=== PATIENT | male | born 1975 | race Caucasian/White ===

== ENCOUNTER 2019-01-07 13:23 | Emergency (ER) | payer OTHER ==
[~2019-01-07] VITALS: Ht 170.2 cm; Wt 75.0 kg
[~2019-01-07 13:23] MED LIST: IBUP800T48 PO; TRAM50TA2 PO
[2019-01-07 13:32] VITALS: Ht 170.2 cm; Wt 75.0 kg
[2019-01-07] MEDS ORDERED: HYDROCODONE/APAP (5/325) TAB PO ONE (15:00)
[2019-01-07] MEDS ORDERED: LIDOCAINE 1% (MPF) 5 ML VIAL INFIL ONE (15:00)
--- NOTE | 2019-01-07 15:47 | ERD ---
ER Documentation Chief Complaint Chief Complaint laceration/wound to the left huerta; occurred today at 6am HPI 43-year-old male is here with laceration to the left huerta that occurred today w ith a piece of metal accidentally cut him. He is able to ambulate. His tetanus vaccination is up-to-date. Denies possibility retained foreign body. ROS All systems reviewed and are negative except as per history of present illness. Allergies Allergies: Coded Allergies: No Known Allergy (Unverified , 01/07/19) PMhx/Soc Medical and Surgical Hx: pt denies Medical Hx, pt denies Surgical Hx Hx Alcohol Use: Yes (SOMETIMES) Hx Substance Use: No Hx Tobacco Use: No Smoking Status: Never smoker FmHx Family History: No diabetes Physical Exam Vitals Vital Signs Date Temp Pulse Resp B/P (MAP) Pulse Ox O2 O2 Flow FiO2 Time Delivery Rate 01/07/19 98.0 85 18 137/37 98 13:32 (70) Physical Exam INITIAL VITAL SIGNS: Reviewed by me GENERAL: Awake, alert and oriented x 4, well appearing, nontoxic, speaking in full sentences. No acute distress HEAD: Atraumatic NECK: Supple. No masses. Full range of motion. No meningismus. No midline tenderness. EYES: EOMI. PERRL. RESPIRATORY: Clear to auscultation bilaterally. Symmetric chest wall rise. No wheezing or rales. No accessory muscle use. CV: Regular rate and rhythm. No murmurs, rubs, or gallops. EXTREMITIES: No clubbing or cyanosis. No edema. Moving all extremities normally. SKIN: Left huerta laceration 2 inches in Results 24 hrs Current Medications Medications Dose Sig/Paulo Start Time Status Last (Trade) Ordered Route PRN Stop Time Admin Dose Reason Admin 1 tab ONCE ONCE 01/07/19 DC 01/07/19 Acetaminophen PO 15:00 14:41 / 01/07/19 15:01 Hydrocodone Bitart ([place] (5/325)) Lidocaine 20 ml ONCE ONCE 01/07/19 DC (Xylocaine INFIL 15:00 1% (Mpf)) 01/07/19 15:01 Procedures/MDM Laceration Repair by me: Anesthesia: 1% lidocaine locally Location: Left lower extremity Tendon/Joint/Nerves: No injury Foreign body: None detected after copious irrigation and exploration Technique: Simple Interrupted Sutures Complexity: No subcutaneous sutures/mucosal repair/edge excision Post Closure Length: 5 cm Patient's bleeding was easily controlled in the department and there is no indication of anemia. No evidence of compartment syndrome, neurologic injury, vascular injury, open joint, tendon laceration, or foreign body. Patient is appropriate for outpatient follow up. 48 hour wound check. Scar minimization instructions given. Patient counseled regarding my diagnostic impression and care plan. Prior to discharge all questions answered. Pt agrees with treatment plan and understands strict return precautions. Pt is instructed to follow up with primary care provider within 24-48 hours. Precautionary instructions provided including instructions to return to the ER if not improving or for any worsening or galicia ing symptoms or concerns. Departure Diagnosis: Primary Impression: Laceration Condition: Stable BRODIE LEE PA-C Jan 07, 2019 15:47
[2019-01-07 16:00] VITALS: BP 106/68; PULSE 77; RESP 16
== END 2019-01-07 16:02 | disposition home or self-care (01) ==
LOC: FTE 13:23
DX: S81.812A Laceration without foreign body, left lower leg, initial encounter (principal); W26.8XXA Contact with other sharp object(s), not elsewhere classified, initial encounter; Y92.9 Unspecified place or not applicable
CPT/HCPCS: 73590